=== PATIENT | female | born 1925 | race Native Hawaiian/Other Pacific Islander ===

== ENCOUNTER 2016-11-18 07:05 | Day surgery (SDC) | payer MEDICARE, MEDICAID ==
[~2016-11-18] VITALS: Ht 137.2 cm; Wt 45.5 kg
[~2016-11-18 07:05] MED LIST: ACET-784 PO; FOLI1 PO; FOLI1TAB85 PO; FURO20 PO; HYDR-3965 PO; ISOS30TA6 PO; LORA10TA7 PO; OMEP20 PO; SIMV-260 PO; TRAM50TA4 PO
[2016-11-18] MEDS ORDERED: SODIUM CHLORIDE 0.9% 1,000 ML IV ONE ×2 (07:30→07:32)
[2016-11-18] MEDS ORDERED: RINGERS SOLUTION,LACTATED 1,000 ML IV SCH (07:30)
[2016-11-18] MEDS ORDERED: CeFAZolin 1 GM/DEXTROSE 50 ML IV ONE ×2 (07:31→08:00)
[2016-11-18] MEDS ORDERED: IOHEXOL 240 MG/ML 20 ML VIAL ONE ×2 (07:38)
[2016-11-18] MEDS ORDERED: SODIUM CL IRRIG SOLN BAG 3,000 ML IRRIG ONE (07:38)
[2016-11-18 08:01] LABS: BASOPHILS % (AUTO) 0.3 % (0.0-2.0); EOSINOPHILS % (AUTO) 1.7 % (1.0-6.0); HEMATOCRIT 25.7 % (36-46); HEMOGLOBIN 8.4 g/dL (12.0-16.0); LYMPHOCYTES # (AUTO) 1.4 K/uL (1.0-4.8); LYMPHOCYTES % (AUTO) 38.9 % (22.0-44.0); MEAN CORPUSCULAR HEMOGLOBIN 26.9 pg (26.0-34.0); MEAN CORPUSCULAR HGB CONC 32.5 G/dL (31.0-37.0); MEAN CORPUSCULAR VOLUME 83 fL (80-100); MONOCYTES # (AUTO) 0.3 K/uL (0.1-1.0); NEUTROPHILS # (AUTO) 1.8 K/uL (1.8-7.7); NEUTROPHILS % (AUTO) 50.1 % (40.0-70.0); PLATELET COUNT (AUTO) 218 K/uL (150-450); RED BLOOD CELL COUNT(AUTO) 3.11 MIL/uL (4.00-5.20); RED CELL DISTRIBUTION WIDTH 16.4 % (11.5-14.5); WHITE BLOOD COUNT (AUTO) 3.6 K/uL (4.5-11.0)
[2016-11-18 08:13] LABS: INR 0.9 (0.9-1.1); PROTHROMBIN TIME 9.9 SEC (9.4-11.6)
[2016-11-18 08:14] LABS: CALCIUM, TOTAL 9.1 mg/dL (8.8-10.5); CREATININE 2.25 mg/dL (0.60-1.30); POTASSIUM 4.4 mmol/L (3.5-5.1)
[2016-11-18 08:22] LABS: ALBUMIN 3.7 g/dL (3.4-5.0); BILIRUBIN,TOTAL 0.2 mg/dL (0.1-1.0); TOTAL PROTEIN, SERUM 7.9 g/dL (6.4-8.2)
[2016-11-18 08:23] LABS: RBC MORPHOLOGY COMMENT ABNORMAL RBC MORPH
[2016-11-18] MEDS ORDERED: ONDANSETRON HCL 4 MG/2 ML VIAL IVP PRN (10:45)
[2016-11-18] MEDS ORDERED: FentaNYL CITRATE-PF 100 MCG/2 ML VIAL IVP PRN (10:45)
[2016-11-18] MEDS ORDERED: NALOXONE HCL 0.4 MG/ML VIAL IVP PRN (10:45)
[2016-11-18] MEDS ORDERED: MORPHINE SULFATE 2 MG/ML SYRINGE IVP PRN (10:45)
[2016-11-18 11:30] LABS: APPEARANCE,URINE CLEAR (CLEAR); GLUCOSE, URINE (UA) NEGATIVE (NEGATIVE); KETONES,URINE NEGATIVE (NEGATIVE); LEUKOCYTE ESTERASE ,URINE NEGATIVE (NEGATIVE); OCCULT BLOOD,URINE SMALL (NEGATIVE); PH,URINE 6.5 (5.0-8.0); PROTEIN,URINE NEGATIVE (NEGATIVE)
[2016-11-18 11:33] LABS: ADD UA MICROSCOPIC YES
[2016-11-18 11:36] LABS: SQUAMOUS EPITHELIAL CELL,UR Rare /LPF (None Seen); WBC,URINE 0-2 /HPF (0-5)
[2016-11-18] MEDS ORDERED: FentaNYL CITRATE-PF 100 MCG/2 ML VIAL IVP ONE (12:00)
[2016-11-18] MEDS ORDERED: OXYGEN THERAPY IH SCH (20:00)
[2016-11-25 14:21] LABS: STONE COLOR Orange; STONE COMMENT Comment:; STONE URIC ACID 95 %
[2017-04-15] MEDS ORDERED: EPOE10003 SQ (16:15)
[2017-04-15] MEDS ORDERED: SODI650T PO (16:16)
== END 2016-11-18 13:05 | disposition home or self-care (01) ==
LOC: SURGERY 07:05
PROVIDERS: ATTEND Urology
DX: N13.2 Hydronephrosis with renal and ureteral calculous obstruction (principal); I12.9 Hypertensive chronic kidney disease with stage 1 through stage 4 chronic kidney disease, or unspecified chronic kidney disease; N18.9 Chronic kidney disease, unspecified; K21.9 Gastro-esophageal reflux disease without esophagitis; D64.9 Anemia, unspecified; M06.9 Rheumatoid arthritis, unspecified; M19.90 Unspecified osteoarthritis, unspecified site; M54.9 Dorsalgia, unspecified; E78.00 Pure hypercholesterolemia, unspecified; Z98.41 Cataract extraction status, right eye; Z90.49 Acquired absence of other specified parts of digestive tract
CPT/HCPCS: 36415; 52332; 71010; 74430; 80053; 81001; 82360; 85025; 85610; 85730; 86850; 86900; 86901; 87086; 88300; 93005; 99152; 99153; C1716; J0690; J3010; J7030; Q9966

== ENCOUNTER 2017-01-21 16:44 | Inpatient (IN) | payer MEDICARE, MEDICAID ==
[2017-01-21] VITALS (8 sets, daily range): BP systolic 155–196; BP diastolic 79–95
[~2017-01-21] VITALS: Ht 157.5 cm; Wt 44.6 kg
[2017-01-21 17:32] LABS: CALCIUM, TOTAL 8.8 mg/dL (8.8-10.5); CREATININE 2.37 mg/dL (0.60-1.30)
[2017-01-21 17:38] LABS: ALBUMIN 3.1 g/dL (3.4-5.0); BILIRUBIN,TOTAL 0.2 mg/dL (0.1-1.0); TOTAL PROTEIN, SERUM 7.9 g/dL (6.4-8.2)
[2017-01-21 17:57] LABS: BASOPHILS % (AUTO) 0.3 % (0.0-2.0); EOSINOPHILS % (AUTO) 5.8 % (1.0-6.0); HEMATOCRIT 21.1 % (36-46); LYMPHOCYTES # (AUTO) 1.4 K/uL (1.0-4.8); LYMPHOCYTES % (AUTO) 28.5 % (22.0-44.0); MEAN CORPUSCULAR HEMOGLOBIN 23.9 pg (26.0-34.0); MEAN CORPUSCULAR HGB CONC 31.5 G/dL (31.0-37.0); MEAN CORPUSCULAR VOLUME 76 fL (80-100); MONOCYTES # (AUTO) 0.4 K/uL (0.1-1.0); MONOCYTES % (AUTO) 8.8 % (2.0-9.0); NEUTROPHILS # (AUTO) 2.8 K/uL (1.8-7.7); NEUTROPHILS % (AUTO) 56.6 % (40.0-70.0); PLATELET COUNT (AUTO) 321 K/uL (150-450); RED BLOOD CELL COUNT(AUTO) 2.78 MIL/uL (4.00-5.20); RED CELL DISTRIBUTION WIDTH 16.8 % (11.5-14.5)
[2017-01-21 18:00] LABS: HEMOGLOBIN 6.7 g/dL (12.0-16.0)
[2017-01-21 18:37] LABS: RBC MORPHOLOGY COMMENT ABNORMAL RBC MORPH
[2017-01-21] MEDS ORDERED: SODIUM CHLORIDE 0.9% 250 ML IV ONE (19:09)
[2017-01-21] MEDS ORDERED: ONDANSETRON HCL 4 MG/2 ML VIAL IVP PRN (19:15)
[2017-01-21] MEDS ORDERED: 0.9% SODIUM CHLORIDE 10 ML SYRINGE IVP PRN (19:15)
[2017-01-21] MEDS ORDERED: ACETAMINOPHEN 325 MG TABLET PO PRN ×2 (19:15→19:30)
[2017-01-21] MEDS ORDERED: TraMADol HCL 50 MG TABLET PO PRN (19:30)
[2017-01-21 20:13] LABS: APPEARANCE,URINE CLEAR (CLEAR); GLUCOSE, URINE (UA) NEGATIVE (NEGATIVE); KETONES,URINE NEGATIVE (NEGATIVE); LEUKOCYTE ESTERASE ,URINE TRACE (NEGATIVE); OCCULT BLOOD,URINE LARGE (NEGATIVE); PH,URINE 6.5 (5.0-8.0); PROTEIN,URINE TRACE (NEGATIVE)
[2017-01-21 20:35] LABS: RBC,URINE 51-100 /HPF (0-2); SQUAMOUS EPITHELIAL CELL,UR Few /LPF (None Seen)
[2017-01-21] MEDS ORDERED: ISOSORBIDE MONONITRATE 30 MG ER TABLET PO ONE (23:42)
[2017-01-21] MEDS: ISOSORBIDE MONONITRATE 30 MG ER TABLET PO SCH (23:43)
[2017-01-21] MEDS: SIMVASTATIN 20 MG TABLET PO SCH (23:43)
[2017-01-22] VITALS (12 sets, daily range): BP systolic 107–190; BP diastolic 59–94
[2017-01-22] MEDS ORDERED: FUROSEMIDE 40 MG/4 ML VIAL IVP ONE (05:15)
[2017-01-22] MEDS ORDERED: CloNIDine HCL 0.1 MG TABLET PO PRN (05:15)
[2017-01-22 06:52] LABS: HEMATOCRIT 28.5 % (36-46); HEMOGLOBIN 9.3 g/dL (12.0-16.0)
[2017-01-22] MEDS: OMEPRAZOLE 20 MG CAPSULE PO SCH (08:30)
[2017-01-22] MEDS: LORATADINE 10 MG TABLET PO SCH (08:30)
[2017-01-22] MEDS: FUROSEMIDE 20 MG TABLET PO SCH (08:30)
[2017-01-22] MEDS: FOLIC ACID 1 MG TABLET PO SCH (08:30)
[2017-01-22] MEDS: ISOSORBIDE MONONITRATE 30 MG ER TABLET PO SCH (08:30)
[2017-01-22] MEDS ORDERED: EPOETIN ALFA 10,000 UNITS/ML VIAL SQ SCH (09:00)
[2017-01-22] MEDS ORDERED: EPOE10003 (20:16)
[2017-01-22] MEDS: SIMVASTATIN 20 MG TABLET PO SCH (21:44)
[2017-01-23 05:08] VITALS: BP 141/71
[2017-01-23 06:15] LABS: BASOPHILS % (AUTO) 0.4 % (0.0-2.0); EOSINOPHILS % (AUTO) 6.2 % (1.0-6.0); HEMATOCRIT 29.6 % (36-46); HEMOGLOBIN 9.5 g/dL (12.0-16.0); LYMPHOCYTES # (AUTO) 1.7 K/uL (1.0-4.8); LYMPHOCYTES % (AUTO) 39.3 % (22.0-44.0); MEAN CORPUSCULAR HEMOGLOBIN 25.8 pg (26.0-34.0); MEAN CORPUSCULAR VOLUME 81 fL (80-100); MONOCYTES # (AUTO) 0.6 K/uL (0.1-1.0); MONOCYTES % (AUTO) 12.8 % (2.0-9.0); NEUTROPHILS # (AUTO) 1.8 K/uL (1.8-7.7); NEUTROPHILS % (AUTO) 41.3 % (40.0-70.0); PLATELET COUNT (AUTO) 294 K/uL (150-450); RED BLOOD CELL COUNT(AUTO) 3.67 MIL/uL (4.00-5.20); RED CELL DISTRIBUTION WIDTH 18.3 % (11.5-14.5); WHITE BLOOD COUNT (AUTO) 4.3 K/uL (4.5-11.0)
[2017-01-23 06:29] LABS: CALCIUM, TOTAL 8.6 mg/dL (8.8-10.5); CREATININE 2.41 mg/dL (0.60-1.30); PHOSPHORUS 4.7 mg/dL (2.5-4.9); POTASSIUM 4.8 mmol/L (3.5-5.1)
[2017-01-23 07:02] VITALS: BP 151/79
[2017-01-23 08:00] LABS: RBC MORPHOLOGY COMMENT ABNORMAL RBC MORPH
[2017-01-23] MEDS: FOLIC ACID 1 MG TABLET PO SCH (08:00)
[2017-01-23] MEDS: LORATADINE 10 MG TABLET PO SCH (08:00)
[2017-01-23] MEDS: ISOSORBIDE MONONITRATE 30 MG ER TABLET PO SCH (08:00)
[2017-01-23] MEDS: OMEPRAZOLE 20 MG CAPSULE PO SCH (08:00)
[2017-01-23] MEDS: FUROSEMIDE 20 MG TABLET PO SCH (08:01)
[2017-04-15] MEDS ORDERED: EPOE10003 SQ (16:15)
[2017-04-15] MEDS ORDERED: SODI650T PO (16:16)
== END 2017-01-23 10:34 | disposition home or self-care (01) | DRG 292 ==
LOC: EMS 16:47 → 6N 19:30
PROVIDERS: ADMIT Internal Medicine; ATTEND Internal Medicine
PROC: 30233N1 Transfusion of Nonautologous Red Blood Cells into Peripheral Vein, Percutaneous Approach (ICD-10-PCS; principal; 2017-01-21)
DX: I13.0 Hypertensive heart and chronic kidney disease with heart failure and stage 1 through stage 4 chronic kidney disease, or unspecified chronic kidney disease (principal); N18.4 Chronic kidney disease, stage 4 (severe); D63.1 Anemia in chronic kidney disease; E78.2 Mixed hyperlipidemia; E87.5 Hyperkalemia; G89.29 Other chronic pain; I50.9 Heart failure, unspecified; M81.0 Age-related osteoporosis without current pathological fracture; K21.9 Gastro-esophageal reflux disease without esophagitis; J30.9 Allergic rhinitis, unspecified; K59.00 Constipation, unspecified; J30.2 Other seasonal allergic rhinitis; M10.9 Gout, unspecified; R32 Unspecified urinary incontinence; M15.9 Polyosteoarthritis, unspecified; Z98.890 Other specified postprocedural states; Z87.442 Personal history of urinary calculi; Z83.3 Family history of diabetes mellitus; Z82.49 Family history of ischemic heart disease and other diseases of the circulatory system
CPT/HCPCS: 82270; 83540; 83550; 83735; 84100; 85014; 85018; 86850; 86900; 86901; 86920; 99285; J0885; J1940; J7050; P9016

== ENCOUNTER 2017-03-23 15:46 | Emergency (ER) | payer MEDICARE, MEDICAID ==
[~2017-03-23] VITALS: Ht 154.9 cm; Wt 45.5 kg
[~2017-03-23 15:46] MED LIST changes: -HYDR-3965 PO
[2017-03-23] MEDS ORDERED: METF500T4 PO (16:09)
[2017-03-23] MEDS ORDERED: LISI-662 PO (16:09)
[2017-03-23] MEDS ORDERED: ACETAMINOPHEN 160 MG/5 ML SUSPENSION UDCUP PO ONE (16:30)
[2017-03-23] MEDS ORDERED: SULFAMETHOX/TRIMETH DS 800-160 MG/TABLET PO ONE (17:00)
[2017-03-23] MEDS ORDERED: ACYCLOVIR 200 MG CAPSULE PO ONE (17:00)
[2017-03-23 17:29] VITALS: BP 147/72
== END 2017-03-23 17:31 | disposition home or self-care (01) ==
LOC: EMS 15:49
DX: B02.9 Zoster without complications (principal); L03.116 Cellulitis of left lower limb; M19.90 Unspecified osteoarthritis, unspecified site; I10 Essential (primary) hypertension; E78.00 Pure hypercholesterolemia, unspecified; E11.9 Type 2 diabetes mellitus without complications; Z79.01 Long term (current) use of anticoagulants
CPT/HCPCS: 99284